=== PATIENT | female | born 1965 | race Caucasian/White ===

== ENCOUNTER → 2022-03-16 12:42 | Outpatient (CLI) | payer BC, SELFPAY ==
--- NOTE | 2022-03-16 | DI.RAD.S_ITS ---
PROCEDURE: XR CERVICAL SPINE 4V OR 5V INDICATIONS: Cervicalgia/Pain in left wrist TECHNIQUE: 4 views of the cervical spine acquired. COMPARISON: None. FINDINGS: Bones: No fractures or dislocations to the C7-T1 level. Oblique images demonstrate no bony foraminal stenoses. Trace retrolisthesis is present at C5-6. Multilevel degenerative changes are present moderate to severe at C4-5, C5-6 and C6-7. Foramina appear patent. Soft tissues: No prevertebral soft tissue swelling. IMPRESSION: Multilevel degenerative changes. Dictated by: Lillie Umaña M.D. on 03/16/2022 at 16:49 Approved by: Lillie Umaña M.D. on 03/16/2022 at 16:50
--- NOTE | 2022-03-16 | DI.RAD.S_ITS ---
PROCEDURE: XR WRIST LT MIN 3V INDICATIONS: Cervicalgia/Pain in left wrist TECHNIQUE: 3 views of the wrist were acquired. COMPARISON: None. FINDINGS: Bones: No fractures or dislocations. No suspicious bony lesions. Soft tissues: No suspicious soft tissue calcifications. IMPRESSION: No fracture. No osseous lesion. If symptoms and/or clinical suspicion for pathology persists, further assessment with repeat radiographs (7-10 days) or advanced imaging (e.g. CT, MRI or bone scan) should be considered. Dictated by: Fani Moise MD, PhD on 03/16/2022 at 15:34 Approved by: Fani Moise MD, PhD on 03/16/2022 at 15:35
--- NOTE | 2022-03-16 12:58 | DI.RAD.S_ITS ---
PROCEDURE: XR WRIST RT MIN 3V INDICATIONS: BILATERAL WRIST PAIN TECHNIQUE: 3 views of the right wrist were acquired. COMPARISON: None. FINDINGS: Bones: No fractures or dislocations. No suspicious bony lesions. Soft tissues: No suspicious soft tissue calcifications. IMPRESSION: No fracture. No osseous lesion. If symptoms and/or clinical suspicion for pathology persists, further assessment with repeat radiographs (7-10 days) or advanced imaging (e.g. CT, MRI or bone scan) should be considered. Dictated by: Fani Moise MD, PhD on 03/16/2022 at 15:35 Approved by: Fani Moise MD, PhD on 03/16/2022 at 15:36
== END ==
PROVIDERS: Referring Provider Chiropractor; Visit Provider Chiropractor
DX: M47.812 Spondylosis without myelopathy or radiculopathy, cervical region (principal); M54.2 Cervicalgia; M99.11 Subluxation complex (vertebral) of cervical region; M25.532 Pain in left wrist; M25.531 Pain in right wrist
CPT/HCPCS: 72050; 73110

== ENCOUNTER → 2022-03-18 15:10 | Outpatient (CLI) | payer BC, SELFPAY ==
--- NOTE | 2022-03-18 15:14 | DI.RAD.S_ITS ---
PROCEDURE: XR THORACIC SPINE 2V INDICATIONS: PAIN IN BACK SUSPECTED SCOLIOSIS TECHNIQUE: 2 views of the thoracic spine were acquired. COMPARISON: None. FINDINGS: Bones: No fractures or dislocations. No suspicious bony lesions. Very mild leftward curvature of thoracic spine centered at T7-8 level is seen. 12 pairs of ribs are noted, and appear intact where visualized. Soft tissues: No paravertebral stripe thickening. IMPRESSION: Mild levoscoliosis of thoracic spine centered at T7-8 level. No acute compression fracture or spondylolisthesis. Dictated by: Brenton Parmar M.D. on 03/18/2022 at 16:46 Approved by: Brenton Parmar M.D. on 03/18/2022 at 16:46
--- NOTE | 2022-03-18 15:14 | DI.RAD.S_ITS ---
PROCEDURE: XR LUMBAR SPINE 2-3V INDICATIONS: PAIN IN BACK SUSPECTED SCOLIOSIS TECHNIQUE: 2 views of the lumbar spine were acquired. COMPARISON: None. FINDINGS: Bones: 5 [id number] vertebrae are present. There is mild rightward curvature of lumbar spine centered at L2 level.. No vertebral body compression fractures. Mild degenerative endplate changes are noted at L2-3, L3-4 and L4-5 levels. No suspicious bony lesions. Soft tissues: Overlying bowel gas pattern is normal. No suspicious soft tissue calcifications. IMPRESSION: Mild dextroscoliosis of lumbar spine as above. No acute compression fracture or spondylolisthesis. Mild degenerative disc disease in mid to lower lumbar spine. Dictated by: Brenton Parmar M.D. on 03/18/2022 at 16:47 Approved by: Bernton Parmar M.D. on 03/18/2022 at 16:47
== END ==
PROVIDERS: Referring Provider Chiropractor; Visit Provider Chiropractor
DX: M99.12 Subluxation complex (vertebral) of thoracic region (principal); M99.13 Subluxation complex (vertebral) of lumbar region; M54.51 Vertebrogenic low back pain; M41.84 Other forms of scoliosis, thoracic region; M41.86 Other forms of scoliosis, lumbar region; M51.36 Other intervertebral disc degeneration, lumbar region
CPT/HCPCS: 72070; 72100

== ENCOUNTER → 2025-02-12 07:31 | Outpatient (CLI) | payer BC, SELFPAY ==
--- NOTE | 2025-02-12 07:32 | DI.RAD.S_ITS ---
PROCEDURE: XR CHEST 2V INDICATIONS: cough TECHNIQUE: 2 views of the chest were acquired. COMPARISON: None. FINDINGS: Heart, mediastinum and pulmonary vascular: Heart is normal in size and configuration. Mediastinum is unremarkable. Pulmonary vascular is normal. Lungs: Small patchy right middle lobe infiltrate appreciated. Lung volumes are elevated with is mild wall thickening of the central bronchi suggesting underlying bronchitis or asthma Pleural spaces: Normal-no effusions or pneumothorax. Bones and soft tissues: Normal IMPRESSION: Small patchy right middle lobe pneumonia. Underlying bronchitis or asthma Dictated by: Jose Abbott M.D. on 02/12/2025 at 10:25 Approved by: Jose Abbott M.D. on 02/12/2025 at 10:26
== END ==
PROVIDERS: Referring Provider Nurse Practitioner Family; Visit Provider Nurse Practitioner Family
DX: R05.9 Cough, unspecified (principal); J18.9 Pneumonia, unspecified organism
CPT/HCPCS: 71046